=== PATIENT | female | born 1975 | race Caucasian/White ===

== ENCOUNTER 2017-03-28 10:44 | Day surgery (SDC) | payer BC, MEDICARE ==
[2017-03-27 13:28] LABS: BASOPHILS ABSOLUTE AUTO 0.02 K/mm3 (0.00-0.23); BASOPHILS PERCENT AUTO 0 % (0-2); EOSINOPHILS ABSOLUTE AUTO 0.28 K/mm3 (0.00-0.68); EOSINOPHILS PERCENT AUTO 4 % (0-6); Hematocrit 22.9 % (33.0-51.0); Hemoglobin 6.9 g/dL (11.5-16.0); IMMATURE GRAN ABSOLUTE AUTO 0.07 K/mm3 (0.00-0.10); IMMATURE GRAN PERCENT AUTO 1 % (0-1); LYMPHOCYTES ABSOLUTE AUTO 1.97 K/mm3 (0.84-5.20); LYMPHOCYTES PERCENT AUTO 31 % (21-46); MONOCYTES PERCENT AUTO 10 % (4-13); Mean Corpuscular HGB 32.7 pg (26.0-34.0); Mean Corpuscular HGB Conc 30.1 g/dL (31.5-36.5); Mean Platelet Volume 11.3 fL (9.1-12.4); NEUTROPHILS ABSOLUTE AUTO 3.36 K/mm3 (1.96-9.15); NEUTROPHILS PERCENT AUTO 53 % (41-73); Platelet Count 102 K/mm3 (150-400); RDW Coefficient Variation 19.7 % (11.7-14.2); RDW Standard Deviation 77.2 fL (35.1-46.3); Red Blood Cell Count 2.11 M/mm3 (3.80-5.20)
[2017-03-27 13:33] LABS: Mean Corpuscular Volume 109 fL (80-100)
[2017-03-27 14:25] LABS: Percent Saturation 100.5 % (15.0-50.0)
[~2017-03-28 10:44] MED LIST: ACET325 PO; ALBU90OI; ALBU90OI INH; ALPR.25; AMIL5; AMIL5 PO; AMILORIDE; AMOX500 PO; ASPI81CH PO; ASPI81EC; ASPI81EC PO; Advair Hfa 230-12 GM; Albuterol2.5 MG/0.5 INH; Aspir 8181 MG PO; BACL10 PO; BACL20 PO; BENIFIBER; BENTYL10 MG PO; BENTYL20 MG; BENTYL20 MG PO; BISA10S PR; BOTOX COSMETIC100 U; Bactrim Ds Tab1 EACH PO; CALCA500CH PO; CEFU250 PO; CHOL10002; CIPR500 PO; CLON1; CLON1 PO; CVS DISPOSABLE399 ML; CYAN1000 PO; CYCL10 PO; Clonazepam1 MG PO; DEXA1L IM; DEXA4 PO; DHEA PO; DILT30 PO; DIPH50 PO; DOCU100 PO; Decadron 4 mg4 MG/M1 IM; Desyrel50 MG PO; ELET40TA PO; ERGO50000 PO; ESCI10; ESCI10 PO; FENT100TP TOP; FENT50TP TOP; FENT75TP TOP; FENTANYL PATCH; FLOMAX; FLONASE ALLERG9.9 ML; FLORINEF; FLUC150A PO; FLUD.1; FLUD.1 PO; FLUSAL2505 IH; FOLI1 PO; FOLI400 PO; Fentanyl1 EAC2 TD; Flonase 0.05% N16 GM; Fludrocortison0.1 MG PO; HYDACE5 PO; HYDCOR10; HYDCOR10 PO; HYDCOR20 PO; HYDHCL25 PO; HYDMOR2 PO; HYDMOR4 PO; HYDPAM25; HYDPAM50 PO; HYDR1TAB94 PO; HYDROCORTISONE; HYOS.125 SL; HYOS0.375T; HYOS0.375T PO; Hydrocortisone10 MG PO; IBUP600 PO; INS70/30PN SC; INSUASPI; INSUASPI SC; K-Phos Origina500 MG PO; KPHOS; Kristalose20 GM PO; LEVA.63IS INH; LEVA1.25; LIDO2TG30 TOP; LORA.5 PO; META800 PO; MIDO5 PO; MIRT15 PO; MIRT30; MYRBETRIQ25 MG PO; Milk Of Ma800 MG/5 M PO; NITR100CA PO; NITROFURANTOIN PO; Nitrofurantoin50 MG; Nitrofurantoin50 MG PO; ONDA4 PO; ONDA4ODT MM; ONDA4ODT SL; ONDA8 PO; ONDA8ODT; ONDA8ODT MM; POTA10T PO; POTCHL20ER; POTCHL20ER PO; PRED20 PO; PROM25; PROM25 PO; PROM25S PR; PROSED DS; PROSED DS PO; PYRI100 PO; Pyridium200 MG PO; RABE20; RANI150; RXHYDMOR2 PO; SOLI5; SOLI5 PO; SOLU CORTEF; SPIR25; SUCR1SU PO; SULTRIDS PO; TAMS.4ER; TAMS.4ER PO; VITAMIN D; VITAMIN D31000 UNIT PO; VITAMIN D5000 UNIT; Vesicare10 MG PO; XOPENEX; XOPENEX HFA; Xopenex Hfa15 GM INH; ZANTAC OTC; ZOFRAN; ZOPENEX; Zofran Odt4 MG SL; Zofran Odt8 MG SL; [UNRECOGNIZED DRUG - OTHER]; [UNRECOGNIZED DRUG - OTHER]; [UNRECOGNIZED DRUG - OTHER]; [UNRECOGNIZED DRUG - OTHER]; [UNRECOGNIZED DRUG - OTHER]
[2017-06-26] MEDS ORDERED: CIPR500 PO (14:21)
== END 2017-03-28 18:57 | disposition home or self-care (01) ==
LOC: ATC 10:44 → EDSTATUS 03-13 10:45 → LAB FUT 03-13 10:45
PROVIDERS: Internal Medicine; Internal Medicine Hematology & Oncology
PROC: 30233N1 Transfusion of Nonautologous Red Blood Cells into Peripheral Vein, Percutaneous Approach (ICD-10-PCS; principal; 2017-03-28)
DX: D64.9 Anemia, unspecified (principal); D52.9 Folate deficiency anemia, unspecified; D53.8 Other specified nutritional anemias; D61.818 Other pancytopenia
CPT/HCPCS: 36415; 36430; 82607; 82728; 82746; 83540; 83550; 85025; 86850; 86900; 86901; 86923; 96374; J1200; J1642; P9016

== ENCOUNTER 2017-04-09 18:11 | Observation (INO) | payer BC, MEDICARE ==
[~2017-04-09] VITALS: Ht 162.6 cm; Wt 38.3 kg
[2017-04-09] MEDS ORDERED: ONDA4ODT PO (19:36)
[2017-04-09] MEDS ORDERED: Xopenex Hfa15 GM INH (19:37)
[2017-04-09] MEDS ORDERED: POTA10T PO (19:39)
[2017-04-09] MEDS ORDERED: PRED20 PO (19:40)
[2017-04-09 21:07] LABS: BASOPHILS ABSOLUTE AUTO 0.05 K/mm3 (0.00-0.23); BASOPHILS PERCENT AUTO 1 % (0-2); EOSINOPHILS ABSOLUTE AUTO 0.22 K/mm3 (0.00-0.68); EOSINOPHILS PERCENT AUTO 3 % (0-6); Hematocrit 22.6 % (33.0-51.0); IMMATURE GRAN ABSOLUTE AUTO 0.17 K/mm3 (0.00-0.10); IMMATURE GRAN PERCENT AUTO 2 % (0-1); LYMPHOCYTES ABSOLUTE AUTO 1.04 K/mm3 (0.84-5.20); LYMPHOCYTES PERCENT AUTO 12 % (21-46); MONOCYTES PERCENT AUTO 7 % (4-13); Mean Corpuscular HGB 36.8 pg (26.0-34.0); Mean Corpuscular Volume 119 fL (80-100); Mean Platelet Volume 10.4 fL (9.1-12.4); NEUTROPHILS ABSOLUTE AUTO 6.77 K/mm3 (1.96-9.15); NEUTROPHILS PERCENT AUTO 76 % (41-73); Platelet Count 170 K/mm3 (150-400); RDW Coefficient Variation 15.9 % (11.7-14.2); RDW Standard Deviation 69.3 fL (35.1-46.3); White Blood Cell Count 8.85 K/mm3 (4.00-11.30)
[2017-04-09 21:43] LABS: Albumin, Blood 3.8 g/dL (3.4-5.0); Albumin/Globulin Ratio 1.6 (0.8-1.8); Bilirubin, Total 0.5 mg/dL (0.1-1.0); Creatinine, Blood 1.09 mg/dL (0.40-1.00); Globulin, Blood 2.4 g/dL (2.2-4.0); Potassium, Blood 3.9 mmol/L (3.5-5.5); Total Protein, Blood 6.2 g/dL (6.4-8.2)
[2017-04-09 21:47] LABS: Calcium, Blood 9.3 mg/dL (8.5-10.1)
[2017-04-10 07:46] LABS: BASOPHILS ABSOLUTE AUTO 0.05 K/mm3 (0.00-0.23); BASOPHILS PERCENT AUTO 1 % (0-2); EOSINOPHILS ABSOLUTE AUTO 0.25 K/mm3 (0.00-0.68); EOSINOPHILS PERCENT AUTO 4 % (0-6); Hemoglobin 9.7 g/dL (11.5-16.0); IMMATURE GRAN ABSOLUTE AUTO 0.12 K/mm3 (0.00-0.10); IMMATURE GRAN PERCENT AUTO 2 % (0-1); LYMPHOCYTES ABSOLUTE AUTO 1.91 K/mm3 (0.84-5.20); LYMPHOCYTES PERCENT AUTO 29 % (21-46); MONOCYTES ABSOLUTE AUTO 0.73 K/mm3 (0.16-1.47); MONOCYTES PERCENT AUTO 11 % (4-13); Mean Platelet Volume 10.5 fL (9.1-12.4); NEUTROPHILS ABSOLUTE AUTO 3.44 K/mm3 (1.96-9.15); NEUTROPHILS PERCENT AUTO 53 % (41-73); Platelet Count 126 K/mm3 (150-400)
[2017-04-10 07:54] LABS: Hematocrit 28.8 % (33.0-51.0); Mean Corpuscular HGB 34.8 pg (26.0-34.0); Mean Corpuscular HGB Conc 33.7 g/dL (31.5-36.5); Mean Corpuscular Volume 103 fL (80-100); Red Blood Cell Count 2.79 M/mm3 (3.80-5.20)
[2017-04-10 08:06] LABS: Alanine Aminotransfer (ALT/SGP 18 U/L (12-78); Albumin, Blood 3.3 g/dL (3.4-5.0); Albumin/Globulin Ratio 1.5 (0.8-1.8); Alk Phos 39 U/L (50-136); Anion Gap 5 mmol/L (6-16); Aspartate Aminotrans (AST/SGOT 25 U/L (12-37); Bilirubin, Total 0.8 mg/dL (0.1-1.0); Blood Urea Nitrogen 20 mg/dL (8-24); Bun/Creatinine Ratio 23.7 (12.0-20.0); CO2, Blood 29 mmol/L (21-32); Calcium, Blood 8.9 mg/dL (8.5-10.1); Chloride, Blood 107 mmol/L (98-108); Creatinine, Blood 0.84 mg/dL (0.40-1.00); Globulin, Blood 2.2 g/dL (2.2-4.0); Glomerular Filtration Rate >60 (60-); Glucose, Blood 93 mg/dL (70-99); Potassium, Blood 3.7 mmol/L (3.5-5.5); Sodium, Blood 141 mmol/L (136-145); Total Protein, Blood 5.5 g/dL (6.4-8.2)
[2017-06-26] MEDS ORDERED: CIPR500 PO (14:21)
== END 2017-04-10 13:10 | disposition home or self-care (01) ==
LOC: ER 18:11 → MEDS 18:12
PROVIDERS: Internal Medicine
DX: D53.9 Nutritional anemia, unspecified (principal); D61.818 Other pancytopenia; E27.40 Unspecified adrenocortical insufficiency; N32.9 Bladder disorder, unspecified; G25.3 Myoclonus; K58.9 Irritable bowel syndrome, unspecified; J84.9 Interstitial pulmonary disease, unspecified; Z88.5 Allergy status to narcotic agent; Z88.7 Allergy status to serum and vaccine; Z91.013 Allergy to seafood; Z88.0 Allergy status to penicillin; Z91.040 Latex allergy status; Z88.8 Allergy status to other drugs, medicaments and biological substances; Z79.82 Long term (current) use of aspirin; Z79.899 Other long term (current) drug therapy; Z90.710 Acquired absence of both cervix and uterus; Z98.890 Other specified postprocedural states
CPT/HCPCS: 36415; 36430; 80053; 85025; 86850; 86900; 86901; 86923; 96361; 96372; 96374; 96375; 99285; G0378; J1200; J1650; J2405; J7030; P9016

== ENCOUNTER → 2017-04-16 | Outpatient (CLI) | payer BC, MEDICARE ==
[~2017-04-16] MED LIST changes: +CEPH250A PO; +FENT50TP; +FENT50TP TD; +ONDA4ODT PO; +OXYC10ER PO; +OXYC5
[2017-04-17 11:49] LABS: Antinuclear Antibody Screen Negative (Negative)
[2017-04-17 17:38] LABS: ANA Negative (NEG); Myeloperoxidase Antibody <0.2 AI (<1.0)
[2017-04-17 17:44] LABS: C3 91 mg/dL (90-200); C4 14.2 mg/dL (15.0-55.0)
[2017-04-18 10:59] LABS: Zinc 79 ug/dL (60-120)
[2017-04-18 19:20] LABS: ANCA <1:20
== END | disposition home or self-care (01) ==
LOC: LAB 14:40
PROVIDERS: Internal Medicine Hematology & Oncology
DX: D61.818 Other pancytopenia (principal); D64.9 Anemia, unspecified; R77.8 Other specified abnormalities of plasma proteins
CPT/HCPCS: 82525; 83516; 83655; 84630; 86038; 86160; 86162; 86256; 86430; 87389; 88184; 88185

== ENCOUNTER 2017-04-24 07:50 | Day surgery (SDC) | payer BC, MEDICARE ==
[2017-04-22 11:48] LABS: BASOPHILS ABSOLUTE AUTO 0.05 K/mm3 (0.00-0.23); BASOPHILS PERCENT AUTO 1 % (0-2); EOSINOPHILS PERCENT AUTO 1 % (0-6); Hematocrit 25.6 % (33.0-51.0); Hemoglobin 7.9 g/dL (11.5-16.0); IMMATURE GRAN ABSOLUTE AUTO 0.16 K/mm3 (0.00-0.10); IMMATURE GRAN PERCENT AUTO 2 % (0-1); LYMPHOCYTES ABSOLUTE AUTO 1.33 K/mm3 (0.84-5.20); LYMPHOCYTES PERCENT AUTO 15 % (21-46); MONOCYTES ABSOLUTE AUTO 0.56 K/mm3 (0.16-1.47); MONOCYTES PERCENT AUTO 6 % (4-13); Mean Corpuscular HGB 34.6 pg (26.0-34.0); Mean Corpuscular HGB Conc 30.9 g/dL (31.5-36.5); Mean Platelet Volume 11.2 fL (9.1-12.4); NEUTROPHILS ABSOLUTE AUTO 6.54 K/mm3 (1.96-9.15); NEUTROPHILS PERCENT AUTO 75 % (41-73); Platelet Count 114 K/mm3 (150-400); RDW Coefficient Variation 15.2 % (11.7-14.2); RDW Standard Deviation 62.6 fL (35.1-46.3); Red Blood Cell Count 2.28 M/mm3 (3.80-5.20); White Blood Cell Count 8.74 K/mm3 (4.00-11.30)
[2017-04-22 11:54] LABS: Mean Corpuscular Volume 112 fL (80-100)
[2017-04-22 12:08] LABS: Alanine Aminotransfer (ALT/SGP 20 U/L (12-78); Albumin, Blood 3.9 g/dL (3.4-5.0); Albumin/Globulin Ratio 1.6 (0.8-1.8); Alk Phos 43 U/L (50-136); Anion Gap 5 mmol/L (6-16); Aspartate Aminotrans (AST/SGOT 20 U/L (12-37); Bilirubin, Total 0.8 mg/dL (0.1-1.0); Blood Urea Nitrogen 20 mg/dL (8-24); Bun/Creatinine Ratio 21.4 (12.0-20.0); CO2, Blood 29 mmol/L (21-32); Calcium, Blood 8.6 mg/dL (8.5-10.1); Chloride, Blood 108 mmol/L (98-108); Creatinine, Blood 0.93 mg/dL (0.40-1.00); Globulin, Blood 2.4 g/dL (2.2-4.0); Glomerular Filtration Rate >60 (60-); Glucose, Blood 95 mg/dL (70-99); Potassium, Blood 4.5 mmol/L (3.5-5.5); Sodium, Blood 142 mmol/L (136-145); Total Protein, Blood 6.3 g/dL (6.4-8.2)
[~2017-04-24 07:50] MED LIST changes: -CEPH250A PO; -FENT50TP; -FENT50TP TD; -OXYC10ER PO; -OXYC5
[2017-04-24] MEDS ORDERED: FENT50TP (14:06)
[2017-04-24] MEDS ORDERED: FENT50TP TD (14:08)
[2017-06-26] MEDS ORDERED: CIPR500 PO (14:21)
== END 2017-04-24 16:00 | disposition home or self-care (01) ==
LOC: LAB 07:50
PROVIDERS: Internal Medicine Hematology & Oncology
PROC: 30233N1 Transfusion of Nonautologous Red Blood Cells into Peripheral Vein, Percutaneous Approach (ICD-10-PCS; principal; 2017-04-24)
DX: D64.9 Anemia, unspecified (principal); D61.818 Other pancytopenia; R77.8 Other specified abnormalities of plasma proteins; E23.3 Hypothalamic dysfunction, not elsewhere classified
CPT/HCPCS: 36430; 80053; 85025; 86850; 86900; 86901; 86923; 96374; J1200; J1642; J7030; P9016

== ENCOUNTER → 2017-04-24 | Outpatient (CLI) | payer BC, MEDICARE | END | disposition home or self-care (01) | LOC: LAB 13:55 → LAB SHORT 13:55 → LAB FUT 04-16 07:30 | DX: D61.818 Other pancytopenia (principal); E23.3 Hypothalamic dysfunction, not elsewhere classified; R77.8 Other specified abnormalities of plasma proteins | CPT/HCPCS: 87177; 87209 ==

== ENCOUNTER 2017-05-02 22:56 | Inpatient (IN) | payer BC, MEDICARE ==
[~2017-05-02] VITALS: Ht 162.6 cm; Wt 37.8 kg
[~2017-05-02 22:56] MED LIST changes: +FENT50TP; +FENT50TP TD
[2017-05-03 00:12] LABS: BASOPHILS ABSOLUTE AUTO 0.02 K/mm3 (0.00-0.23); BASOPHILS PERCENT AUTO 0 % (0-2); EOSINOPHILS ABSOLUTE AUTO 0.08 K/mm3 (0.00-0.68); EOSINOPHILS PERCENT AUTO 1 % (0-6); IMMATURE GRAN ABSOLUTE AUTO 0.13 K/mm3 (0.00-0.10); IMMATURE GRAN PERCENT AUTO 2 % (0-1); LYMPHOCYTES ABSOLUTE AUTO 1.01 K/mm3 (0.84-5.20); LYMPHOCYTES PERCENT AUTO 13 % (21-46); MONOCYTES ABSOLUTE AUTO 0.48 K/mm3 (0.16-1.47); MONOCYTES PERCENT AUTO 6 % (4-13); Mean Corpuscular HGB 36.6 pg (26.0-34.0); Mean Corpuscular HGB Conc 30.4 g/dL (31.5-36.5); Mean Corpuscular Volume 120 fL (80-100); Mean Platelet Volume 11.3 fL (9.1-12.4); NEUTROPHILS ABSOLUTE AUTO 6.06 K/mm3 (1.96-9.15); NEUTROPHILS PERCENT AUTO 78 % (41-73); Platelet Count 126 K/mm3 (150-400); RDW Coefficient Variation 19.2 % (11.7-14.2); RDW Standard Deviation 83.9 fL (35.1-46.3); Red Blood Cell Count 1.42 M/mm3 (3.80-5.20); White Blood Cell Count 7.78 K/mm3 (4.00-11.30)
[2017-05-03 00:13] LABS: Hemoglobin 5.2 g/dL (11.5-16.0)
[2017-05-03 00:14] LABS: Hematocrit 17.1 % (33.0-51.0)
[2017-05-03 00:22] LABS: Source, Urine Catheter
[2017-05-03 00:24] LABS: Blood, Urine 1+ (Neg); Glucose Qualitative, Urine Neg (Neg); Ketones, Urine Neg (Neg); Leukocyte Esterase, Urine 1+ (Neg); Nitrite, Urine Pos (Neg); Protein, Urine 2+ (Neg); Specific Gravity, Urine 1.015 (1.003-1.022); Urobilinogen, Urine 3+ (Normal)
[2017-05-03 00:28] LABS: Alanine Aminotransfer (ALT/SGP 14 U/L (12-78); Albumin, Blood 3.4 g/dL (3.4-5.0); Albumin/Globulin Ratio 1.5 (0.8-1.8); Alk Phos 39 U/L (50-136); Anion Gap 6 mmol/L (6-16); Aspartate Aminotrans (AST/SGOT 29 U/L (12-37); Bilirubin, Total 0.4 mg/dL (0.1-1.0); Blood Urea Nitrogen 16 mg/dL (8-24); Bun/Creatinine Ratio 16.2 (12.0-20.0); CO2, Blood 31 mmol/L (21-32); Calcium, Blood 8.1 mg/dL (8.5-10.1); Chloride, Blood 109 mmol/L (98-108); Creatinine, Blood 0.99 mg/dL (0.40-1.00); Globulin, Blood 2.3 g/dL (2.2-4.0); Glomerular Filtration Rate >60 (60-); Glucose, Blood 108 mg/dL (70-99); Potassium, Blood 3.2 mmol/L (3.5-5.5); Sodium, Blood 146 mmol/L (136-145); Total Protein, Blood 5.7 g/dL (6.4-8.2)
[2017-05-03 00:30] LABS: Appearance, Urine Clear (Clear); Bilirubin, Urine 3+ (Neg); Color, Urine Orange (P-Yellow)
[2017-05-03 00:31] LABS: Bacteria Few /hpf; Red Blood Cells, Urine Rare /hpf (0-2); Squamous Epithelial Cells Few /hpf (Few)
[2017-05-03 01:32] LABS: Influenza A Negative (NEGATIVE); Influenza B Negative (NEGATIVE)
[2017-05-03 08:36] LABS: Hematocrit 25.9 % (33.0-51.0); Hemoglobin 8.2 g/dL (11.5-16.0); Mean Corpuscular HGB 33.7 pg (26.0-34.0); Mean Corpuscular HGB Conc 31.7 g/dL (31.5-36.5); Mean Platelet Volume 11.4 fL (9.1-12.4); NRBC ABSOLUTE 0.02 K/mm3 (0.00-0.02); NRBC Auto 0.2 /100 WBC (0.0-0.2); Platelet Count 113 K/mm3 (150-400); RDW Coefficient Variation 23.7 % (11.7-14.2); RDW Standard Deviation 87.4 fL (35.1-46.3); Red Blood Cell Count 2.43 M/mm3 (3.80-5.20); White Blood Cell Count 8.89 K/mm3 (4.00-11.30)
[2017-05-03 08:52] LABS: Albumin, Blood 3.5 g/dL (3.4-5.0); Anion Gap 6 mmol/L (6-16); Blood Urea Nitrogen 17 mg/dL (8-24); Bun/Creatinine Ratio 21.6 (12.0-20.0); CO2, Blood 29 mmol/L (21-32); Calcium, Blood 8.1 mg/dL (8.5-10.1); Chloride, Blood 108 mmol/L (98-108); Creatinine, Blood 0.79 mg/dL (0.40-1.00); Glomerular Filtration Rate >60 (60-); Glucose, Blood 137 mg/dL (70-99); Phosphorus, Blood 2.6 mg/dL (2.5-4.9); Potassium, Blood 4.2 mmol/L (3.5-5.5); Sodium, Blood 143 mmol/L (136-145)
[2017-05-03 09:10] LABS: Mean Corpuscular Volume 107 fL (80-100)
[2017-05-03 09:13] LABS: BAND PERCENT MAN 2 % (0-8); BASOPHILS ABSOLUTE MAN 0.08 K/mm3 (0.00-0.23); BASOPHILS PERCENT MAN 1 % (0-2); EOSINOPHILS PERCENT MAN 0 % (0-6); LYMPHOCYTES ABSOLUTE MAN 0.53 K/mm3 (0.84-5.20); LYMPHOCYTES PERCENT MAN 6 % (21-46); MONOCYTES ABSOLUTE MAN 0.08 K/mm3 (0.16-1.47); MONOCYTES PERCENT MAN 1 % (4-13); MYELOCYTE ABSOLUTE MAN 0.17 K/mm3 (0.00-0.00); MYELOCYTE PERCENT MAN 2 % (0-0); SEG NEUTROPHILS PERCENT MAN 88 % (41-73); TOTAL CELLS COUNTED 100
[2017-05-04 04:31] LABS: BASOPHILS ABSOLUTE AUTO 0.04 K/mm3 (0.00-0.23); BASOPHILS PERCENT AUTO 0 % (0-2); EOSINOPHILS ABSOLUTE AUTO 0.16 K/mm3 (0.00-0.68); EOSINOPHILS PERCENT AUTO 2 % (0-6); Hematocrit 25.6 % (33.0-51.0); IMMATURE GRAN ABSOLUTE AUTO 0.22 K/mm3 (0.00-0.10); IMMATURE GRAN PERCENT AUTO 2 % (0-1); LYMPHOCYTES ABSOLUTE AUTO 2.04 K/mm3 (0.84-5.20); LYMPHOCYTES PERCENT AUTO 21 % (21-46); MONOCYTES ABSOLUTE AUTO 0.78 K/mm3 (0.16-1.47); MONOCYTES PERCENT AUTO 8 % (4-13); Mean Corpuscular HGB 33.5 pg (26.0-34.0); Mean Corpuscular HGB Conc 31.3 g/dL (31.5-36.5); Mean Corpuscular Volume 107 fL (80-100); Mean Platelet Volume 11.7 fL (9.1-12.4); NEUTROPHILS ABSOLUTE AUTO 6.61 K/mm3 (1.96-9.15); NEUTROPHILS PERCENT AUTO 67 % (41-73); NRBC ABSOLUTE 0.03 K/mm3 (0.00-0.02); NRBC Auto 0.3 /100 WBC (0.0-0.2); Platelet Count 113 K/mm3 (150-400); RDW Coefficient Variation 23.9 % (11.7-14.2); RDW Standard Deviation 91.7 fL (35.1-46.3); Red Blood Cell Count 2.39 M/mm3 (3.80-5.20); White Blood Cell Count 9.85 K/mm3 (4.00-11.30)
[2017-06-26] MEDS ORDERED: CIPR500 PO (14:21)
== END 2017-05-04 13:45 | disposition home or self-care (01) | DRG 812 ==
LOC: ER 22:56 → PCU 05-03 01:46
PROVIDERS: Emergency Medicine; Family Medicine; Internal Medicine
PROC: 30243N1 Transfusion of Nonautologous Red Blood Cells into Central Vein, Percutaneous Approach (ICD-10-PCS; principal; 2017-05-03)
DX: D64.9 Anemia, unspecified (principal); I95.89 Other hypotension; E23.3 Hypothalamic dysfunction, not elsewhere classified; E87.6 Hypokalemia; Z88.0 Allergy status to penicillin
CPT/HCPCS: 36415; 36430; 70491; 71046; 71260; 74177; 80053; 80069; 81001; 82272; 82607; 82728; 82746; 83540; 83550; 83605; 85025; 86850; 86900; 86901; 86923; 87086; 87804; 93005; 93010; 96361; 96365; 96375; 99285; J0696; J1642; J1720; J7030; P9016; Q0163; Q9967

== ENCOUNTER 2017-05-17 09:42 | Day surgery (SDC) | payer BC, MEDICARE ==
[2017-05-16 14:17] LABS: BASOPHILS ABSOLUTE AUTO 0.04 K/mm3 (0.00-0.23); BASOPHILS PERCENT AUTO 0 % (0-2); EOSINOPHILS ABSOLUTE AUTO 0.14 K/mm3 (0.00-0.68); EOSINOPHILS PERCENT AUTO 2 % (0-6); Hematocrit 27.2 % (33.0-51.0); Hemoglobin 8.4 g/dL (11.5-16.0); IMMATURE GRAN PERCENT AUTO 4 % (0-1); LYMPHOCYTES ABSOLUTE AUTO 2.76 K/mm3 (0.84-5.20); LYMPHOCYTES PERCENT AUTO 30 % (21-46); MONOCYTES ABSOLUTE AUTO 0.75 K/mm3 (0.16-1.47); MONOCYTES PERCENT AUTO 8 % (4-13); Mean Corpuscular HGB Conc 30.9 g/dL (31.5-36.5); Mean Platelet Volume 11.4 fL (9.1-12.4); NEUTROPHILS ABSOLUTE AUTO 5.18 K/mm3 (1.96-9.15); NEUTROPHILS PERCENT AUTO 56 % (41-73); Platelet Count 155 K/mm3 (150-400); RDW Coefficient Variation 20.6 % (11.7-14.2); RDW Standard Deviation 87.5 fL (35.1-46.3); White Blood Cell Count 9.27 K/mm3 (4.00-11.30)
[2017-05-16 14:20] LABS: Mean Corpuscular Volume 113 fL (80-100)
[2017-05-16 14:58] LABS: Anion Gap 7 mmol/L (6-16); Blood Urea Nitrogen 19 mg/dL (8-24); Bun/Creatinine Ratio 23.5 (12.0-20.0); CO2, Blood 31 mmol/L (21-32); Chloride, Blood 106 mmol/L (98-108); Creatinine, Blood 0.81 mg/dL (0.40-1.00); Glomerular Filtration Rate >60 (60-); Glucose, Blood 85 mg/dL (70-99); Potassium, Blood 3.1 mmol/L (3.5-5.5); Sodium, Blood 144 mmol/L (136-145)
[2017-05-17] MEDS ORDERED: OXYC5 (13:56)
[2017-05-17] MEDS ORDERED: OXYC10ER PO (13:56)
[2017-06-26] MEDS ORDERED: CIPR500 PO (14:21)
== END 2017-05-17 18:40 | disposition home or self-care (01) ==
LOC: ATC 09:42
PROVIDERS: Internal Medicine; Internal Medicine Hematology & Oncology
DX: E87.6 Hypokalemia (principal); D61.818 Other pancytopenia; D64.9 Anemia, unspecified; Z99.81 Dependence on supplemental oxygen; E27.40 Unspecified adrenocortical insufficiency; Z87.891 Personal history of nicotine dependence
CPT/HCPCS: 36415; 36430; 80048; 85025; 86850; 86900; 86901; 86923; 96374; J1200; J1642; J7030; P9016

== ENCOUNTER 2017-05-26 15:29 | Emergency (ER) | payer BC, MEDICARE ==
[~2017-05-26] VITALS: Ht 162.6 cm; Wt 35.4 kg
[~2017-05-26 15:29] MED LIST changes: +OXYC10ER PO; +OXYC5
[2017-05-26 16:09] LABS: Source, Urine Catheter
[2017-05-26 16:13] LABS: Appearance, Urine Clear (Clear); Blood, Urine 1+ (Neg); Glucose Qualitative, Urine Neg (Neg); Ketones, Urine Neg (Neg); Leukocyte Esterase, Urine 1+ (Neg); Nitrite, Urine Pos (Neg); Protein, Urine 1+ (Neg); Specific Gravity, Urine 1.015 (1.003-1.022); Urobilinogen, Urine 3+ (Normal)
[2017-05-26 16:21] LABS: Bilirubin, Urine 3+ (Neg)
[2017-05-26 16:22] LABS: Color, Urine Amber (P-Yellow)
[2017-05-26 16:23] LABS: Bacteria Rare /hpf; Red Blood Cells, Urine Not Seen /hpf (0-2); Squamous Epithelial Cells Few /hpf (Few); White Blood Cells, Urine 0-2 /hpf (0-5)
[2017-05-26 16:33] LABS: BASOPHILS ABSOLUTE AUTO 0.06 K/mm3 (0.00-0.23); BASOPHILS PERCENT AUTO 0 % (0-2); EOSINOPHILS ABSOLUTE AUTO 0.01 K/mm3 (0.00-0.68); EOSINOPHILS PERCENT AUTO 0 % (0-6); Hematocrit 23.2 % (33.0-51.0); Hemoglobin 7.2 g/dL (11.5-16.0); IMMATURE GRAN ABSOLUTE AUTO 0.84 K/mm3 (0.00-0.10); IMMATURE GRAN PERCENT AUTO 5 % (0-1); LYMPHOCYTES PERCENT AUTO 7 % (21-46); MONOCYTES ABSOLUTE AUTO 0.89 K/mm3 (0.16-1.47); MONOCYTES PERCENT AUTO 5 % (4-13); Mean Corpuscular HGB 34.6 pg (26.0-34.0); Mean Platelet Volume 10.7 fL (9.1-12.4); NEUTROPHILS ABSOLUTE AUTO 14.78 K/mm3 (1.96-9.15); NEUTROPHILS PERCENT AUTO 83 % (41-73); NRBC ABSOLUTE 0.02 K/mm3 (0.00-0.02); NRBC Auto 0.1 /100 WBC (0.0-0.2); Platelet Count 164 K/mm3 (150-400); RDW Coefficient Variation 21.6 % (11.7-14.2); RDW Standard Deviation 89.1 fL (35.1-46.3); Red Blood Cell Count 2.08 M/mm3 (3.80-5.20); White Blood Cell Count 17.88 K/mm3 (4.00-11.30)
[2017-05-26 16:35] LABS: Mean Corpuscular Volume 112 fL (80-100)
[2017-05-26 16:50] LABS: Alanine Aminotransfer (ALT/SGP 23 U/L (12-78); Albumin, Blood 4.1 g/dL (3.4-5.0); Albumin/Globulin Ratio 1.6 (0.8-1.8); Alk Phos 48 U/L (50-136); Anion Gap 8 mmol/L (6-16); Aspartate Aminotrans (AST/SGOT 31 U/L (12-37); Bilirubin, Total 0.7 mg/dL (0.1-1.0); Blood Urea Nitrogen 29 mg/dL (8-24); Bun/Creatinine Ratio 39.8 (12.0-20.0); CO2, Blood 23 mmol/L (21-32); Calcium, Blood 8.2 mg/dL (8.5-10.1); Chloride, Blood 111 mmol/L (98-108); Creatinine, Blood 0.73 mg/dL (0.40-1.00); Globulin, Blood 2.5 g/dL (2.2-4.0); Glomerular Filtration Rate >60 (60-); Glucose, Blood 126 mg/dL (70-99); Potassium, Blood 4.1 mmol/L (3.5-5.5); Sodium, Blood 142 mmol/L (136-145); Total Protein, Blood 6.6 g/dL (6.4-8.2)
[2017-06-26] MEDS ORDERED: CIPR500 PO (14:21)
== END 2017-05-26 21:32 | disposition home or self-care (01) ==
LOC: ER 15:29
PROVIDERS: Emergency Medicine
DX: D64.9 Anemia, unspecified (principal); R41.0 Disorientation, unspecified; Z79.891 Long term (current) use of opiate analgesic; Z79.899 Other long term (current) drug therapy; Z79.82 Long term (current) use of aspirin; Z79.52 Long term (current) use of systemic steroids
CPT/HCPCS: 36430; 71046; 80053; 81001; 85025; 86850; 86900; 86901; 86923; 87086; 96361; 96374; 99283; 99284; J1200; J1642; J7030; P9016; P9612

== ENCOUNTER 2017-06-07 07:03 | Day surgery (SDC) | payer BC, MEDICARE ==
[2017-06-26] MEDS ORDERED: CIPR500 PO (14:21)
== END 2017-06-07 17:43 | disposition home or self-care (01) ==
LOC: ATC 07:03
PROC: 30233N1 Transfusion of Nonautologous Red Blood Cells into Peripheral Vein, Percutaneous Approach (ICD-10-PCS; principal; 2017-06-07)
DX: D64.9 Anemia, unspecified (principal)
CPT/HCPCS: 36430; 86850; 86900; 86901; 86923; 96374; J1200; J1642; J7030; P9016

== ENCOUNTER → 2017-06-21 | Outpatient (CLI) | payer BC, MEDICARE ==
[2017-06-21 15:33] LABS: Appearance, Urine Clear (Clear); Blood, Urine 2+ (Neg); Color, Urine Amber (P-Yellow); Glucose Qualitative, Urine Neg (Neg); Ketones, Urine Neg (Neg); Leukocyte Esterase, Urine Neg (Neg); Nitrite, Urine Pos (Neg); Protein, Urine 2+ (Neg); Specific Gravity, Urine 1.015 (1.003-1.022); Urobilinogen, Urine 4+ (Normal); pH, Urine 6.5 (5.0-8.0)
[2017-06-21 15:39] LABS: Bilirubin, Urine 3+ (Neg)
[2017-06-21 15:40] LABS: Hyaline Casts 0-2 /lpf (0-2)
[2017-06-21 15:41] LABS: Bacteria Many /hpf; Renal Epithelial Few /hpf (0-Rare); Squamous Epithelial Cells Few /hpf (Few); White Blood Cells, Urine 25-50 /hpf (0-5)
== END ==
LOC: LAB 09:01 → LAB SHORT 09:01
PROVIDERS: Internal Medicine Hematology & Oncology
DX: R17 Unspecified jaundice (principal); R77.8 Other specified abnormalities of plasma proteins; E27.40 Unspecified adrenocortical insufficiency
CPT/HCPCS: 81001; 87077; 87086; 87186

== ENCOUNTER 2017-07-26 02:15 | Day surgery (SDC) | payer BC, MEDICARE ==
[2017-07-25 13:38] LABS: BASOPHILS ABSOLUTE AUTO 0.03 K/mm3 (0.00-0.23); BASOPHILS PERCENT AUTO 0 % (0-2); EOSINOPHILS ABSOLUTE AUTO 0.01 K/mm3 (0.00-0.68); EOSINOPHILS PERCENT AUTO 0 % (0-6); Hematocrit 22.4 % (33.0-51.0); Hemoglobin 6.9 g/dL (11.5-16.0); IMMATURE GRAN ABSOLUTE AUTO 0.65 K/mm3 (0.00-0.10); IMMATURE GRAN PERCENT AUTO 6 % (0-1); LYMPHOCYTES ABSOLUTE AUTO 0.78 K/mm3 (0.84-5.20); LYMPHOCYTES PERCENT AUTO 7 % (21-46); MONOCYTES PERCENT AUTO 8 % (4-13); Mean Corpuscular HGB 37.1 pg (26.0-34.0); Mean Corpuscular HGB Conc 30.8 g/dL (31.5-36.5); Mean Platelet Volume 11.2 fL (9.1-12.4); NEUTROPHILS ABSOLUTE AUTO 9.02 K/mm3 (1.96-9.15); NEUTROPHILS PERCENT AUTO 79 % (41-73); NRBC ABSOLUTE 0.06 K/mm3 (0.00-0.02); NRBC Auto 0.5 /100 WBC (0.0-0.2); Platelet Count 174 K/mm3 (150-400); RDW Coefficient Variation 18.5 % (11.7-14.2); RDW Standard Deviation 78.8 fL (35.1-46.3); Red Blood Cell Count 1.86 M/mm3 (3.80-5.20); White Blood Cell Count 11.39 K/mm3 (4.00-11.30)
[2017-07-25 13:43] LABS: Mean Corpuscular Volume 120 fL (80-100)
[2017-07-25 14:23] LABS: Anion Gap 12 mmol/L (6-16); Blood Urea Nitrogen 16 mg/dL (8-24); Bun/Creatinine Ratio 17.1 (12.0-20.0); CO2, Blood 24 mmol/L (21-32); Calcium, Blood 9.3 mg/dL (8.5-10.1); Chloride, Blood 104 mmol/L (98-108); Creatinine, Blood 0.93 mg/dL (0.40-1.00); Glomerular Filtration Rate >60 (60-); Glucose, Blood 97 mg/dL (70-99); Potassium, Blood 3.6 mmol/L (3.5-5.5); Sodium, Blood 140 mmol/L (136-145)
== END 2017-07-26 12:50 | disposition home or self-care (01) ==
LOC: ATC 02:15
PROVIDERS: Internal Medicine; Internal Medicine Hematology & Oncology
DX: D58.9 Hereditary hemolytic anemia, unspecified (principal); D61.818 Other pancytopenia; E87.6 Hypokalemia; E27.49 Other adrenocortical insufficiency; E11.9 Type 2 diabetes mellitus without complications; F41.9 Anxiety disorder, unspecified; J45.909 Unspecified asthma, uncomplicated
CPT/HCPCS: 36415; 36430; 80048; 85025; 86850; 86900; 86901; 86923; J1200; J1642; J7030; P9016

== ENCOUNTER → 2017-08-13 | Outpatient (CLI) | payer BC, MEDICARE ==
[2017-08-13 14:08] LABS: Blood, Urine 1+ (Neg); Glucose Qualitative, Urine Neg (Neg); Ketones, Urine Neg (Neg); Leukocyte Esterase, Urine Neg (Neg); Nitrite, Urine Pos (Neg); Protein, Urine 2+ (Neg); Specific Gravity, Urine 1.015 (1.003-1.022); Urobilinogen, Urine 4+ (Normal); pH, Urine 6.5 (5.0-8.0)
[2017-08-13 14:21] LABS: Bilirubin, Urine 3+ (Neg)
[2017-08-13 14:22] LABS: Appearance, Urine Turbid (Clear); Color, Urine Red (P-Yellow)
[2017-08-13 14:34] LABS: Other Crystals Few /hpf
[2017-08-13 14:35] LABS: Bacteria Not Seen /hpf; Red Blood Cells, Urine 0-2 /hpf (0-2); Squamous Epithelial Cells Rare /hpf (Few); White Blood Cells, Urine 0-2 /hpf (0-5)
== END | disposition home or self-care (01) ==
LOC: LAB 13:36 → LAB SHORT 13:36 → LAB FUT 08-13 10:45 → EDSTATUS 08-13 10:45
PROVIDERS: Internal Medicine
DX: N31.9 Neuromuscular dysfunction of bladder, unspecified (principal); R30.0 Dysuria
CPT/HCPCS: 81001; 87086

== ENCOUNTER 2017-10-23 00:08 | Day surgery (SDC) | payer BC, MEDICARE ==
[2017-10-23] MEDS ORDERED: CEPH250A PO (10:59)
== END 2017-10-23 11:01 | disposition home or self-care (01) ==
LOC: ATC 00:08
DX: D64.9 Anemia, unspecified (principal); T80.92XA Unspecified transfusion reaction, initial encounter; Z87.891 Personal history of nicotine dependence; J45.909 Unspecified asthma, uncomplicated; K21.9 Gastro-esophageal reflux disease without esophagitis; E11.9 Type 2 diabetes mellitus without complications
CPT/HCPCS: 96523; J1642

== ENCOUNTER → 2018-07-08 | Outpatient (CLI) | payer MEDICARE ==
[~2018-07-08] MED LIST changes: +CEPH250A PO
== END | disposition home or self-care (01) ==
LOC: LAB 11:42 → LAB SHORT 11:42
PROVIDERS: Internal Medicine Hematology & Oncology
DX: D61.818 Other pancytopenia (principal); D58.9 Hereditary hemolytic anemia, unspecified; E23.3 Hypothalamic dysfunction, not elsewhere classified; R77.8 Other specified abnormalities of plasma proteins
CPT/HCPCS: 81256

== ENCOUNTER → 2023-05-02 | Outpatient (CLI) | payer BC, MEDICARE | END | disposition home or self-care (01) | LOC: LAB 11:18 → LAB SHORT 11:18 | PROVIDERS: Internal Medicine | DX: I49.8 Other specified cardiac arrhythmias (principal); R00.2 Palpitations; R10.84 Generalized abdominal pain | CPT/HCPCS: 82135; 82570; 84110; 84120 ==

== ENCOUNTER → 2023-10-10 | Outpatient (CLI) | payer MEDICARE, OTHER ==
[2023-10-10 13:24] LABS: BASOPHILS ABSOLUTE AUTO 0.05 K/mm3 (0.00-0.23); BASOPHILS PERCENT AUTO 1 % (0-2); EOSINOPHILS ABSOLUTE AUTO 0.11 K/mm3 (0.00-0.68); EOSINOPHILS PERCENT AUTO 3 % (0-6); Hematocrit 44.6 % (33.0-51.0); Hemoglobin 14.4 g/dL (11.5-16.0); IMMATURE GRAN ABSOLUTE AUTO 0.02 K/mm3 (0.00-0.10); IMMATURE GRAN PERCENT AUTO 1 % (0-1); LYMPHOCYTES ABSOLUTE AUTO 1.24 K/mm3 (0.84-5.20); LYMPHOCYTES PERCENT AUTO 28 % (21-46); MONOCYTES ABSOLUTE AUTO 0.38 K/mm3 (0.16-1.47); MONOCYTES PERCENT AUTO 9 % (4-13); Mean Corpuscular HGB 31.6 pg (26.0-34.0); Mean Corpuscular HGB Conc 32.3 g/dL (31.5-36.5); Mean Corpuscular Volume 98 fL (80-100); Mean Platelet Volume 10.3 fL (9.1-12.4); NEUTROPHILS ABSOLUTE AUTO 2.59 K/mm3 (1.96-9.15); NEUTROPHILS PERCENT AUTO 59 % (41-73); Platelet Count 172 K/mm3 (150-400); RDW Coefficient Variation 12.1 % (11.7-14.2); RDW Standard Deviation 43.8 fL (35.1-46.3); Red Blood Cell Count 4.56 M/mm3 (3.80-5.20); White Blood Cell Count 4.39 K/mm3 (4.00-11.30)
[2023-10-10 13:44] LABS: Albumin, Blood 4.3 g/dL (3.4-5.0); Albumin/Globulin Ratio 1.5 (0.8-1.8); Bilirubin, Total 0.2 mg/dL (0.1-1.0); Bun/Creatinine Ratio 21.7 (12.0-20.0); Calcium, Blood 9.1 mg/dL (8.5-10.1); Creatinine, Blood 0.74 mg/dL (0.40-1.00); Globulin, Blood 2.8 g/dL (2.2-4.0); Potassium, Blood 4.2 mmol/L (3.5-5.5); Thyroid Stimulating Hormone 0.634 uIU/mL (0.360-4.800); Total Protein, Blood 7.1 g/dL (6.4-8.2)
== END | disposition home or self-care (01) ==
LOC: LAB SHORT 11:37 → LAB 11:37
PROVIDERS: Internal Medicine
DX: E83.110 Hereditary hemochromatosis (principal); D58.9 Hereditary hemolytic anemia, unspecified; I49.8 Other specified cardiac arrhythmias; R63.4 Abnormal weight loss
CPT/HCPCS: 80053; 84443; 85025